=== PATIENT | male | born 1995 | race African-American/Black ===

== ENCOUNTER 2019-06-25 03:25 | Emergency (ER) | payer OTHER ==
[~2019-06-25] VITALS: Ht 177.8 cm; Wt 63.5 kg
[2019-06-25 03:27] VITALS: BP 116/77
[2019-06-25] MEDS ORDERED: TRAMADOL 50 MG50 MG PO (04:49)
[2019-06-25] MEDS ORDERED: NAPROSYN500 MG PO (04:49)
== END 2019-06-25 05:13 | disposition home or self-care (01) ==
LOC: ER 03:25
DX: G89.29 Other chronic pain (principal); M79.652 Pain in left thigh; F17.210 Nicotine dependence, cigarettes, uncomplicated; Z87.828 Personal history of other (healed) physical injury and trauma